=== PATIENT | male | born 1990 | race Asian ===

== ENCOUNTER → 2025-04-23 | Outpatient (CLI) | payer OTHER ==
[2025-04-23 16:32] LABS: ESTIMATED AVERAGE GLUCOSE 105.0 MG/DL (60-110); RHEUMATOID FACTOR QUANT < 3.5 IU/ML (<14)
[2025-04-23 16:35] LABS: TOTAL 25(OH) VITAMIN D 7.5 NG/ML (20.0-100.0)
[2025-04-23 16:40] LABS: VITAMIN B12 LEVEL 464 PG/ML (211-911)
[2025-04-25 21:58] LABS: T P ELECTROPHORESIS SO 7.5 g/dL (6.1-8.1)
== END ==
LOC: M LAB 15:31
PROVIDERS: ATTEND Psychiatry & Neurology Neurology
DX: R20.0 Anesthesia of skin (principal)